=== PATIENT | female | born 1975 | race Caucasian/White ===

== ENCOUNTER 2017-05-02 14:24 | Emergency (ER) | payer MEDICAID ==
[~2017-05-02] VITALS: Ht 147.3 cm; Wt 82.6 kg
[2017-05-02 14:33] VITALS: BP 113/67
--- NOTE | 2017-05-02 15:45 | NUR ---
PT AMB TO BED 6
--- NOTE | 2017-05-02 15:49 | NUR ---
41F BIB FAMILY C/O OPENED ABCESS TO LEFT FLANK X 9 DAYS. PT STATED "IT WAS A PIMPLE I PUSHED AND POPPED". DENIES N/V/D; AAOX4 WITH EVEN AND STEADY GAIT; LUNGS CLEAR BL; HR EVEN AND REGULAR; PT DENIES ANY FEVER, CP, SOB, OR COUGH AT THIS TIME; PATIENT STATES PAIN OF 5/10 AT THIS TIME; VSS; PATIENT POSITIONED FOR COMFORT; HOB ELEVATED; BEDRAILS UP X2; BED DOWN. ER MD MADE AWARE OF PT STATUS.
--- NOTE | 2017-05-02 15:56 | NUR ---
ROBERT MINA EVALUATING PT AT BEDSIDE.
--- NOTE | 2017-05-02 16:05 | NUR ---
BS 107;NOTIFIED ROBERT MINA.
[2017-05-02 16:32] VITALS: BP 110/61
== END 2017-05-02 16:33 | disposition home or self-care (01) ==
LOC: MED 14:24
DX: L08.89 Other specified local infections of the skin and subcutaneous tissue (principal)
CPT/HCPCS: 82948; 99283

== ENCOUNTER 2017-11-09 12:41 | Emergency (ER) | payer MEDICAID ==
[~2017-11-09] VITALS: Ht 149.9 cm; Wt 82.2 kg
[2017-11-09 13:25] VITALS: BP 118/70
[2017-11-09] MEDS ORDERED: FAMOTIDINE 20 MG TAB PO ONE (13:45)
[2017-11-09] MEDS ORDERED: ASPIRIN 81 MG TAB.CHEW PO ONE (13:45)
[2017-11-09] MEDS ORDERED: ALUMINUM HYD/MAG/SIMETHICONE 30 ML UDC PO ONE (13:45)
--- NOTE | 2017-11-09 13:47 | NUR ---
PT TAKEN TO BED 12.
--- NOTE | 2017-11-09 13:50 | NUR ---
patient brought in by private vehicle for c/o right sided chest pain radiating to right back since 11/08/17 @ 1800. patient state "it just hurts" patient denies headahce, blurred vision, n/v/d, numbness or tinging, no dyspnea present. skin is warm is w,d,i. family at bedside. awaiting md enrrique handy.
[2017-11-09 13:58] LABS: BASOPHILS # (AUTO) 0.1 K/uL (0.00-0.22); BASOPHILS % (AUTO) 0.9 % (0.0-2.0); EOSINOPHILS # (AUTO) 0.2 K/uL (0-0.4); EOSINOPHILS % (AUTO) 2.1 % (0.0-4.0); HEMATOCRIT 38.6 % (36-48); HEMOGLOBIN 12.9 g/dL (12.0-16.0); LYMPHOCYTES # (AUTO) 1.7 K/uL (2.5-16.5); MEAN CORPUSCULAR HEMOGLOBIN 30 pg (27-31); MEAN CORPUSCULAR HGB CONC 34 g/dL (33-37); MEAN CORPUSCULAR VOLUME 90 fL (80-94); MONOCYTES # (AUTO) 0.9 K/uL (0.8-1.0); MONOCYTES % (AUTO) 7.9 % (1.7-9.3); NEUTROPHILS # (AUTO) 8.5 K/uL (1.8-7.7); NEUTROPHILS % (AUTO) 74.1 % (42.2-75.2); PLATELET COUNT (AUTO) 234 K/uL (140-450); RED CELL DISTRIBUTION WIDTH 12.6 % (11.6-13.7); WHITE BLOOD COUNT (AUTO) 11.4 K/uL (4.8-10.8)
--- NOTE | 2017-11-09 14:00 | NUR ---
Dr. Quesada in room for patient examination.
[2017-11-09 14:07] LABS: ANION GAP 11.6 (8-16); CREATININE 0.8 mg/dL (0.6-1.3); POTASSIUM 3.6 mmol/L (3.5-5.1); PROTHROMBIN TIME 11.5 secs (10.8-13.4)
[2017-11-09 14:13] LABS: ALBUMIN 3.5 g/dL (3.4-5.0); TOTAL BILIRUBIN 0.3 mg/dL (0.0-1.0)
--- NOTE | 2017-11-09 15:10 | NUR ---
patient found resting in her bed. states " I stil don't feel good" at bedside and supportive of patient. patient stable at this time.
[2017-11-09] MEDS ORDERED: KETOROLAC 60 MG/2 ML VIAL IM ONE (15:35)
[2017-11-09 16:30] VITALS: BP 103/56
== END 2017-11-09 16:30 | disposition home or self-care (01) ==
LOC: MED 12:41
DX: R07.89 Other chest pain (principal); Z90.49 Acquired absence of other specified parts of digestive tract
CPT/HCPCS: 36415; 71045; 80053; 81002; 81025; 83690; 83880; 84484; 85025; 85610; 85730; 96372; 99285; J1885

== ENCOUNTER 2019-05-24 17:26 | Emergency (ER) | payer MEDICAID ==
[~2019-05-24] VITALS: Ht 142.2 cm; Wt 84.5 kg
[2019-05-24 17:33] VITALS: BP 119/70
--- NOTE | 2019-05-24 19:54 | NUR ---
PT AMBULATED TO BED 11 WITH STEADY GAIT.
--- NOTE | 2019-05-24 19:54 | NUR ---
PT GIVEN URINE CUP. PT AMBULATED TO THE BATHROOM WITH STEADY GAIT.
--- NOTE | 2019-05-24 19:58 | NUR ---
43 YO FEMALE BIB SELF FOR RASH X3 HOURS. 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 PT AAOX4, LUNGS CLEAR EVEN UNLABORED. DENIES HEADACHE, DIZZINESS. PT STATES ITCHINESS LESSEN AFTER BENADRYL GIVEN BY TRIAGE NURSE. LILY LOCKED IN LOWEST POSITION. WILL UPDATE ERMD. HX: DENIES AX: DENIES LMP: 05/03/19
[2019-05-24 20:56] VITALS: BP 100/37
--- NOTE | 2019-05-24 20:56 | NUR ---
Patient discharged with v/s stable. Written and verbal after care instructions given and explained. Patient alert, oriented and verbalized understanding of instructions. Ambulatory with steady gait. All questions addressed prior to discharge. ID band removed. Patient advised to follow up with PMD. Rx of PREDNISONE, BENADRYL given. Patient educated on indication of medication including possible reaction and side effects. Opportunity to ask questions provided and answered.
== END 2019-05-24 20:56 | disposition home or self-care (01) ==
LOC: MED 17:26
DX: R21 Rash and other nonspecific skin eruption (principal)
CPT/HCPCS: 99282; Q0163

== ENCOUNTER 2024-01-16 15:17 | Emergency (ER) | payer MEDICAID, OTHER ==
[~2024-01-16] VITALS: Ht 152.4 cm; Wt 81.6 kg
[2024-01-16 15:22] VITALS: BP 104/59; PULSE 64; RESP 18; TEMP 98.1; O2SAT 98
[2024-01-16] MEDS ORDERED: CEPH-588 PO (16:47)
[2024-01-16] MEDS ORDERED: IBUP-2213 PO (16:47)
[2024-01-16 16:55] VITALS: BP 119/63; PULSE 66; TEMP 98; O2SAT 98
== END 2024-01-16 16:55 | disposition home or self-care (01) ==
LOC: MED 15:17
DX: N61.0 Mastitis without abscess (principal); Z79.899 Other long term (current) drug therapy
CPT/HCPCS: 99283